=== PATIENT | male | born 1940 | race Caucasian/White ===

== ENCOUNTER → 2019-04-07 | Outpatient (CLI) | payer MEDICARE ==
[~2019-04-07] MED LIST: AMBIEN 10 MG TA10 MG PO; CYMBALTA30 MG PO; FISH OIL 1,0001 EAC5 PO; IMDUR 30 MG TAB30 M1 PO; LATANOPROST2.5 ML OP; LOSARTAN POTAS100 MG PO; LOW DOSE ASPIRI81 M1 PO; MOBIC15 MG PO; NEURONTIN 300300 M1 PO; NEXIUM40 MG PO; PERCOCET 5-3251 EACH PO; SEROQUEL 50 MG50 M1 PO; TRAMADOL 50 MG50 MG PO; TRILIPIX135 MG PO; WELLBUTRIN XL150 M1 PO; ZETIA10 MG PO; ZOCOR 10 MG TAB10 MG PO
== END ==
LOC: M.WC 08:58
DX: E11.622 Type 2 diabetes mellitus with other skin ulcer (principal); L89.322 Pressure ulcer of left buttock, stage 2; L98.411 Non-pressure chronic ulcer of buttock limited to breakdown of skin; E11.65 Type 2 diabetes mellitus with hyperglycemia; I25.10 Atherosclerotic heart disease of native coronary artery without angina pectoris; F32.9 Major depressive disorder, single episode, unspecified; Z87.891 Personal history of nicotine dependence; Z95.1 Presence of aortocoronary bypass graft; Z79.82 Long term (current) use of aspirin

== ENCOUNTER → 2019-04-14 | Outpatient (CLI) | payer MEDICARE | LOC: M.WC 02:04 | DX: E11.622 Type 2 diabetes mellitus with other skin ulcer (principal); L89.322 Pressure ulcer of left buttock, stage 2; L97.418 Non-pressure chronic ulcer of right heel and midfoot with other specified severity; E11.65 Type 2 diabetes mellitus with hyperglycemia; I25.10 Atherosclerotic heart disease of native coronary artery without angina pectoris; F32.9 Major depressive disorder, single episode, unspecified; Z87.891 Personal history of nicotine dependence ==